=== PATIENT | male | born 1985 | race Caucasian/White ===

== ENCOUNTER 2023-09-03 15:17 | Emergency (ER) | payer MEDICAID ==
[~2023-09-03] VITALS: Ht 190.5 cm; Wt 121.6 kg
[2023-09-03 15:27] VITALS: BP 126/85; PULSE 89; RESP 18; TEMP 98; O2SAT 98
[2023-09-03 16:15] LABS: BASOPHILS % 0.4 % (0.0-2.0); EOSINOPHILS % 1.6 % (0.0-5.0); HEMATOCRIT. 44.6 % (42.0-52.0); LYMPHOCYTES % 30.6 % (20.0-50.0); MEAN CORPUSCULAR HEMOGLOBIN 30.3 pg (28.0-32.0); MEAN CORPUSCULAR HGB CONC 33.7 g/dL (31.0-37.0); MEAN CORPUSCULAR VOLUME 89.8 fL (80.0-94.0); MONOCYTES % 6.8 % (2.0-8.0); NEUTROPHILS % 60.6 % (40.0-76.0); PLATELET 264 x1000/uL (130-400); RED BLOOD CELL COUNT 4.96 mill/uL (4.7-6.1); RED CELL DISTRIBUTION WIDTH 13.4 % (11.6-14.6); WHITE BLOOD COUNT 5.9 x1000/uL (4.5-11.0)
[2023-09-03 16:28] LABS: ALANINE AMINOTRANSFERASE 12 IU/L (10-49); ALBUMIN 4.9 g/dL (3.2-4.8); ASPARTATE AMINOTRANSFERASE 27 IU/L (<34); BILIRUBIN TOTAL 0.3 mg/dL (0.1-1.0); CALCIUM 9.6 mg/dL (8.7-10.4); CARBON DIOXIDE 29 mEq/L (21-32); CHLORIDE 106 mEq/L (98-107); GLUCOSE 111 mg/dL (70-105); POTASSIUM 4.1 mEq/L (3.5-5.1); PROTEIN TOTAL 8.2 g/dL (6.0-8.3); SODIUM 140 mEq/L (136-145); UREA NITROGEN BLOOD 14 mg/dL (9-23)
[2023-09-03 16:59] LABS: TROPONIN I HIGH SENSITIVITY 4 ng/L (3.0-53)
[2023-09-03] MEDS ORDERED: VALA100044 MT (18:21)
== END 2023-09-03 18:26 | disposition home or self-care (01) ==
LOC: ER 15:28
DX: B02.9 Zoster without complications (principal); Z68.33 Body mass index [BMI] 33.0-33.9, adult
CPT/HCPCS: 36415; 80053; 84484; 85025; 99283

== ENCOUNTER 2024-09-26 14:05 | Emergency (ER) | payer MEDICAID ==
[~2024-09-26] VITALS: Ht 175.3 cm; Wt 86.0 kg
[~2024-09-26 14:05] MED LIST: VALA100044 MT
[2024-09-26 14:21] VITALS: BP 137/79; TEMP 36.6; O2SAT 98
[2024-09-26 14:22] VITALS: PULSE 88; RESP 18; O2SAT 99
== END 2024-09-26 15:00 | disposition left against medical advice (07) ==
LOC: ER 14:05
DX: R68.89 Other general symptoms and signs (principal); Z53.21 Procedure and treatment not carried out due to patient leaving prior to being seen by health care provider